=== PATIENT | male | born 1955 | race Caucasian/White ===

== ENCOUNTER → 2017-09-17 08:24 | Outpatient (CLI) | payer OTHER, SELFPAY ==
[2017-09-17 10:15] LABS: Hematocrit 44.5 % (40-54); Hemoglobin 15.3 g/dl (13.0-16.5); Mean Corp Hgb Conc 34.4 g/gl (32-36); Mean Corpuscular Hgb 31.2 pg (27.0-32.0); Mean Corpuscular Volume 90.8 fL (80-94); Mean Platelet Vol. 9.9 fl (6.2-12.0); Platelet Count 179 K/mm3 (150-450); RBC Distribution Width CV 13.1 % (11.6-14.6); RBC Distribution Width SD 43.5 fl (35.1-43.9); White Blood Count 6.1 K/mm3 (4.4-11.0)
[2017-09-17 10:21] LABS: Scan Indicated on CBC? Y/N NO
[2017-09-17 10:48] LABS: Anion Gap 6 (5-15); BUN 15 mg/dL (7-18); BUN/Creat Ratio 15.7 RATIO (10-20); Calcium,Total 8.6 mg/dL (8.5-10.1); Chloride 107 mmol/L (98-107); Cholesterol 130 mg/dL (200); Creatinine, Serum 0.96 mg/dL (0.70-1.30); EST Glomerular Filtration Rate 84 mL/min (>60); Est Glom Filt Rate - Afr Amer 102 mL/min (>60); Glucose 97 mg/dL (74-106); High Density Lipoprotein 44 mg/dL; Potassium 3.8 mmol/L (3.5-5.1); Sodium Level 140 mmol/L (136-145); Thyroid Stim Hormone (TSH) 2.32 uIU/mL (0.358-3.74); Triglycerides 95 mg/dL; Very Low Density Lipoprotein 19 mg/dL (5-40)
== END ==
PROVIDERS: Visit Provider Family Medicine
DX: I48.91 Unspecified atrial fibrillation (principal); N40.0 Benign prostatic hyperplasia without lower urinary tract symptoms
CPT/HCPCS: 36415; 80048; 80061; 84153; 84443; 85027; G0103

== ENCOUNTER → 2018-10-11 | Outpatient (CLI) | payer MEDICARE, OTHER, SELFPAY ==
[2018-10-11 10:42] LABS: Anion Gap 7 (5-15); BUN 17 mg/dL (7-18); BUN/Creat Ratio 18.3 RATIO (10-20); Calcium,Total 8.5 mg/dL (8.5-10.1); Chloride 108 mmol/L (98-107); Cholesterol 123 mg/dL (200); Creatinine, Serum 0.93 mg/dL (0.70-1.30); EST Glomerular Filtration Rate 87 mL/min (>60); Est Glom Filt Rate - Afr Amer 105 mL/min (>60); Glucose 106 mg/dL (74-106); High Density Lipoprotein 46 mg/dL; PSA,Total - Annual Screen 1.75 ng/mL (0.00-4.00); Potassium 4.1 mmol/L (3.5-5.1); Sodium Level 141 mmol/L (136-145); Thyroid Stim Hormone (TSH) 2.15 uIU/mL (0.358-3.74); Triglycerides 73 mg/dL; Very Low Density Lipoprotein 15 mg/dL (5-40)
== END | disposition home or self-care (01) ==
LOC: MFPLAB 08:11
PROVIDERS: Family Provider Family Medicine; PCP Family Medicine; Referring Provider Family Medicine; Visit Provider Family Medicine
DX: I48.91 Unspecified atrial fibrillation (principal); N40.0 Benign prostatic hyperplasia without lower urinary tract symptoms
CPT/HCPCS: 36415; 80048; 80061; 84153; 84443; G0103

== ENCOUNTER → 2018-10-17 | Outpatient (CLI) | payer MEDICARE, OTHER, SELFPAY ==
[2018-02-28 14:34] VITALS: BMI 26.9
--- NOTE | 2018-10-17 07:40 | US_ITS ---
PROCEDURES: ULTRASOUND AORTA REASON FOR EXAM: Male, 63 years old. Screening, family history TECHNIQUE: Ultrasound evaluation of the aorta was performed with real-time and static mora-scale imaging. COMPARISON: None. FINDINGS: There is no elongation or tortuosity of the abdominal aorta. Aorta measures: Proximal 2.6 cm. Middle 2.1 cm. Distal 1.9 cm. Aorta measure transversely: Proximal 2.3 cm. Middle 2.3 cm. Distal 2.2 cm. Right iliac artery measures: 1.5 cm. Right iliac artery measure transversely: 1.4 cm. Left iliac artery measures: 1.4 cm. Left iliac artery measure transversely: 1.4 cm. There is no demonstrated aneurysm.. US/Aorta IMPRESSION: Normal abdominal aorta. Electronically Signed: Nic Casillas MD at 10:20 EDT , Service support ,
== END | disposition home or self-care (01) ==
PROVIDERS: Family Provider Family Medicine; PCP Family Medicine; Referring Provider Family Medicine; Visit Provider Family Medicine
DX: Z00.00 Encounter for general adult medical examination without abnormal findings (principal); I10 Essential (primary) hypertension
CPT/HCPCS: 76775

== ENCOUNTER → 2019-05-27 12:53 | Outpatient (CLI) | payer MEDICARE, OTHER, SELFPAY ==
[2019-05-08 10:32] VITALS: BMI 27.9
--- NOTE | 2019-05-27 12:55 | ECHOD_ITS ---
Reason For Study: AFIB/FLUTTER Procedure This was a 2D Doppler, Color Flow transthoracic echocardiogram. Exam performed in department. Left Ventricle Mild concentric left ventricular hypertrophy. The estimated ejection fraction is 65 %. Normal diastology for age. No regional wall motion abnormalities noted. Right Ventricle Moderately dilated right ventricle. Normal systolic function. Atria The left atrium is mildly enlarged. Normal right atrium. Normal atrial septum. Mitral Valve The mitral valve is structurally normal. No prolapse or stenosis seen. Mild (1+) mitral valve insufficiency. Tricuspid Valve Normal tricuspid valve. Trivial tricuspid valve insufficiency. Right ventricular systolic pressure estimated to be 28 mmHg. Aortic Valve Trisinus/trileaflet aortic valve. Trivial aortic valve insufficiency. Pulmonic Valve Normal pulmonic valve. Trivial pulmonic valve insufficiency. Great Vessels Normal aortic root. Normal arch. Normal inferior vena cava. Inferior vena cava collapse with sniff. Pericardium/Pleural No pericardial effusion. MMode/2D Measurements & Calculations LVIDd: 5.4 cm IVSd: 1.4 cm Ao root diam: 3.5 cm LVIDs: 3.5 cm LVPWd: 0.90 cm RVDd: 4.2 cm FS: 34.7 % LAV(MOD-bp): 75.6 ml EDV(MOD-sp4): 132.9 ml SV(MOD-sp4): 74.6 ml LAV(MOD-bp) Indexed: 35.0 ml/m2 ESV(MOD-sp4): 58.2 ml LAV(MOD-sp2): 68.8 ml EF(MOD-sp4): 56.2 % LAV(MOD-sp4): 68.6 ml LA dimension(2D): 4.1 cm LA A4 area: 21.4 cm2 RA A4 area: 19.5 cm2 Time Measurements MV dec time: 0.21 sec Doppler Measurements & Calculations MV E max hermelindo: 74.0 cm/sec Lat Peak E' Hermelindo: 9.0 cm/sec Med Peak E' Hermelindo: 7.5 cm/sec MV A max hermelindo: 58.9 cm/sec E/E' lat: 8.2 E/E' med: 9.9 MV E/A: 1.3 Ao V2 max: 149.5 cm/sec LV V1 max: 118.8 cm/sec MR max hermelindo: 554.3 cm/sec Ao max P.9 mmHg LV V1 max P.6 mmHg MR max P.9 mmHg PA V2 max: 87.9 cm/sec TR max hermelindo: 227.3 cm/sec TR max P.7 mmHg Interpretation Summary Mild concentric left ventricular hypertrophy. The estimated ejection fraction is 65 %. Normal diastology for age. Moderately dilated right ventricle. The left atrium is mildly enlarged. Mild (1+) mitral valve insufficiency. Trivial tricuspid valve insufficiency. Right ventricular systolic pressure estimated to be 28 mmHg. Trivial aortic valve insufficiency. Compared to echo report dated 06/05/2016, LV function, RVSP and aortic insufficiency are about the same. RV is now moderately enlarged. Ordering Physician: Carlos Yao Referring Physician: Toni Kim Performed By: Kelsey Weathers RDCS, RVT
== END ==
PROVIDERS: Family Provider Family Medicine; PCP Family Medicine; Referring Provider Internal Medicine Cardiovascular Disease; Visit Provider Internal Medicine Cardiovascular Disease
DX: I48.0 Paroxysmal atrial fibrillation (principal)
CPT/HCPCS: 93306

== ENCOUNTER → 2019-06-05 09:37 | Outpatient (CLI) | payer MEDICARE, OTHER, SELFPAY ==
[2019-05-08 10:32] VITALS: BMI 27.9
--- NOTE | 2019-06-05 09:39 | STEWCON_ITS ---
Reason For Study: atrial fib/flutter Stress Results Protocol: Rocky Protocol WITH DEFINITY Maximum Predicted HR: 155 bpm Target HR: 132 bpm % Maximum Predicted HR: 91 % DurationHeart Rate Stage (mm:ss) (bpm) BP Comment baseline 50 122/784ml definity given total stage 1 3:00 75 130/70 stage 2 3:00 92 162/70 stage 3 3:00 108 180/72 stage 4 2:01 141 184/80 recovery 70 132/66 Stress Duration: 11:01 mm:ss Maximum Stress HR: 141 bpm Baseline Echocardiogram Findings The estimated ejection fraction is 65 %. Stress Echo Wall motion Data Resting WM Intermediate WM Stress WM Resting Wall Motion Wall Motion Stress No regional wall motion No regional wall motion abnormalities noted. abnormalities noted. EKG Data The baseline ECG displays normal sinus rhythm. The patient exercised according to the regular Rocky protocol for a total duration of 11:00. The maximum heart rate attained was 141 beats per minute. This was 90% of maximum predicted heart rate. The patient exercised into stage 4 of the Rocky protocol. During stress, there were no ST or T wave changes noted to suggest ischemia. No clinical angina was noted. Interpretation Summary The estimated ejection fraction is 65 %. Normal, adequate, treadmill echocardiogram. Negative for ischemia by EKG and echocardiographic criteria. No anginal symptoms noted. Rare PVC noted. Average exercise capacity for age. Appropriate blood pressure response to exercise. Test terminated due to the attainment target heart rate. Final LVEF is 75%. Decreased sensitivity due to poor echo windows requiring Definity agent. Patient tolerated procedure well. No complications. The study was technically difficult. Contrast injection was performed. Ordering Physician: Carlos Yao Referring Physician: Carlos Yao Performed By: Oralia Herr RDCS
== END ==
PROVIDERS: Family Provider Family Medicine; PCP Family Medicine; Referring Provider Internal Medicine Cardiovascular Disease; Visit Provider Internal Medicine Cardiovascular Disease
DX: I48.0 Paroxysmal atrial fibrillation (principal); R00.1 Bradycardia, unspecified; Z79.01 Long term (current) use of anticoagulants; I48.92 Unspecified atrial flutter; R94.31 Abnormal electrocardiogram [ECG] [EKG]
CPT/HCPCS: 93017; 93350; Q9957; A4216; C8928

== ENCOUNTER → 2020-02-12 08:15 | Outpatient (CLI) | payer MEDICARE, OTHER, SELFPAY ==
[2019-11-27 09:17] VITALS: BMI 27.9
[2020-02-12 10:06] LABS: BUN 12 mg/dL (7-18); Creatinine, Serum 0.88 mg/dL (0.70-1.30); EST Glomerular Filtration Rate 92 mL/min (>60); Glucose 103 mg/dL (74-106)
[2020-02-12 10:07] LABS: ALB/GLOB Ratio 1.1 RATIO (0.9-2.4); AST(SGOT) 18 U/L (15-37); Alanine Aminotransfer ALT/SGPT 20 U/L (16-61); Albumin, Serum 3.6 g/dL (3.2-5.0); Alkaline Phosphatase 44 U/L (45-117); Anion Gap 3 (5-15); BUN/Creat Ratio 13.6 RATIO (10-20); Calcium,Total 8.4 mg/dL (8.5-10.1); Chloride 108 mmol/L (98-107); Cholesterol 130 mg/dL (200); Est Glom Filt Rate - Afr Amer 111 mL/min (>60); Globulin 3.4 g/dL (2.2-4.2); High Density Lipoprotein 49 mg/dL; PSA,Total - Annual Screen 1.38 ng/mL (0.00-4.00); Potassium 4.2 mmol/L (3.5-5.1); Sodium Level 140 mmol/L (136-145); Triglycerides 76 mg/dL; Very Low Density Lipoprotein 15 mg/dL (5-40)
[2020-02-12 10:08] LABS: Vitamin D,25 Hydroxy 70.1 ng/mL
== END ==
PROVIDERS: PCP Family Medicine; Referring Provider Family Medicine; Visit Provider Family Medicine
DX: I10 Essential (primary) hypertension (principal); E55.9 Vitamin D deficiency, unspecified; N40.0 Benign prostatic hyperplasia without lower urinary tract symptoms; Z12.5 Encounter for screening for malignant neoplasm of prostate
CPT/HCPCS: 36415; 80053; 80061; 82306; 84153; G0103

== ENCOUNTER 2020-08-23 16:58 | Outpatient (RCR) | payer MEDICARE, OTHER, SELFPAY ==
[2020-07-29 13:32] VITALS: BMI 27.5
== END 2020-08-23 23:59 ==
LOC: IMMUN 16:58
PROVIDERS: PCP Family Medicine; Visit Provider Family Medicine
DX: Z23 Encounter for immunization (principal)
CPT/HCPCS: 0011A; 0012A

== ENCOUNTER → 2020-12-30 09:18 | Outpatient (CLI) | payer MEDICARE, OTHER, SELFPAY ==
[2020-07-29 13:32] VITALS: BMI 27.5
== END ==
PROVIDERS: PCP Family Medicine; Referring Provider Physician Assistant Medical; Visit Provider Physician Assistant Medical
DX: I48.0 Paroxysmal atrial fibrillation (principal); R00.1 Bradycardia, unspecified; R00.2 Palpitations; R94.31 Abnormal electrocardiogram [ECG] [EKG]
CPT/HCPCS: 93225; 93226

== ENCOUNTER → 2021-02-17 08:23 | Outpatient (CLI) | payer MEDICARE, OTHER, SELFPAY ==
[2021-02-17 10:22] LABS: Cholesterol 128 mg/dL (200); High Density Lipoprotein 51 mg/dL; Triglycerides 74 mg/dL; Very Low Density Lipoprotein 15 mg/dL (5-40)
[2021-02-18 14:56] LABS: Hematocrit 45.6 % (40-54); Hemoglobin 15.2 g/dL (13.0-16.5); Mean Corp Hgb Conc 33.3 g/dL (32-36); Mean Corpuscular Hgb 31.6 pg (27.0-32.0); Mean Corpuscular Volume 94.8 fL (80-94); Mean Platelet Vol. 10.6 fl (6.2-12.0); Platelet Count 185 K/mm3 (150-450); RBC Distribution Width CV 12.8 % (11.6-14.6); RBC Distribution Width SD 44.6 fl (35.1-43.9); Red Blood Count 4.81 M/mm3 (4.6-6.2); White Blood Count 5.3 K/mm3 (4.4-11.0)
[2021-02-18 15:09] LABS: Anion Gap 5 (5-15); BUN 16 mg/dL (7-18); BUN/Creat Ratio 17.8 RATIO (10-20); Calcium,Total 8.9 mg/dL (8.5-10.1); Chloride 107 mmol/L (98-107); EST Glomerular Filtration Rate 90 mL/min (>60); Est Glom Filt Rate - Afr Amer 109 mL/min (>60); Glucose 101 mg/dL (74-106); PSA,Total - Annual Screen 1.76 ng/mL (0.00-4.00); Potassium 4.6 mmol/L (3.5-5.1); Sodium Level 140 mmol/L (136-145)
== END ==
PROVIDERS: PCP Family Medicine; Visit Provider Family Medicine
DX: N40.0 Benign prostatic hyperplasia without lower urinary tract symptoms (principal); I48.91 Unspecified atrial fibrillation; I10 Essential (primary) hypertension
CPT/HCPCS: 36415; 80048; 80061; 84153; 85027; G0103

== ENCOUNTER → 2021-10-27 | Outpatient (CLI) | payer MEDICARE, OTHER, SELFPAY ==
--- NOTE | 2021-10-27 10:57 | ECHOD_ITS ---
Version 2 Reason For Study: ARRYTHMIA Procedure This was a 2D Doppler, Color Flow transthoracic echocardiogram. Exam performed in department. Left Ventricle Normal LV size. Moderate concentric left ventricular hypertrophy. Sigmoid septum. Left ventricular systolic function is normal. No regional wall motion abnormalities noted. Right Ventricle Normal right ventricle. Normal systolic function. Atria Normal left atrium. Normal right atrium. Mitral Valve Bileaflet diffuse mitral valve thickening. Mild (1+) eccentric mitral valve insufficiency. Tricuspid Valve Normal tricuspid valve. Mild tricuspid valve insufficiency. Aortic Valve Trisinus/trileaflet aortic valve. Mild (1+) eccentric aortic valve insufficiency. Pulmonic Valve Normal pulmonic valve. Great Vessels Normal aortic root. The pulmonary artery is normal size. Normal inferior vena cava. Pericardium/Pleural No pericardial effusion. MMode/2D Measurements & Calculations LVIDd: 6.0 cm IVSd: 1.3 cm Ao root diam: 3.3 cm LVIDs: 3.0 cm LVPWd: 1.7 cm RVDd: 3.5 cm FS: 49.8 % LAV(MOD-sp4): 73.1 ml LVAd ap4: 44.3 cm2 LVAd ap2: 29.1 cm2 LVLd ap4: 9.2 cm LVLd ap2: 6.9 cm EDV(MOD-sp4): 166.2 ml EDV(MOD-sp2): 96.1 ml EDV(sp4-el): 179.7 ml EDV(sp2-el): 104.0 ml LVAs ap4: 23.9 cm2 LVAs ap2: 18.1 cm2 LVLs ap4: 8.3 cm LVLs ap2: 6.8 cm ESV(MOD-sp4): 62.2 ml ESV(MOD-sp2): 42.2 ml ESV(sp4-el): 58.1 ml ESV(sp2-el): 40.9 ml EF(MOD-sp4): 62.6 % EF(MOD-sp2): 56.1 % EF(sp4-el): 67.7 % SV(MOD-sp4): 103.9 ml SV(MOD-sp2): 53.9 ml SV(sp4-el): 121.7 ml LA dimension(2D): 4.2 cm Doppler Measurements & Calculations MV E max hermelindo: 63.7 cm/sec Lat Peak E' Hermelindo: 9.2 cm/sec Med Peak E' Hermelindo: 6.1 cm/sec MV A max hermelindo: 56.2 cm/sec E/E' lat: 7.0 E/E' med: 10.4 MV E/A: 1.1 Ao V2 max: 170.4 cm/sec AI max hermelindo: 496.8 cm/sec LV V1 max: 140.9 cm/sec Ao max P.6 mmHg AI max P.9 mmHg LV V1 max P.9 mmHg AI dec slope: 217.6 cm/sec2 AI P1/2t: 668.9 msec MR max hermelindo: 648.9 cm/sec PA V2 max: 88.4 cm/sec TR max hermelindo: 193.8 cm/sec MR max P.4 mmHg TR max P.0 mmHg MR mean hermelindo: 471.4 cm/sec MR mean P.5 mmHg MR VTI: 222.7 cm ECHO/Echo Complete Interpretation Summary Normal LV size. Left ventricular systolic function is normal. Moderate concentric left ventricular hypertrophy. Sigmoid septum. Mild (1+) eccentric aortic valve insufficiency. Ordering Physician: Dani Rouse Referring Physician: Dani Rouse Performed By: Juani Brower RCS
== END | disposition home or self-care (01) ==
LOC: CVS 10:57
PROVIDERS: PCP Family Medicine; Referring Provider Internal Medicine Cardiovascular Disease; Visit Provider Internal Medicine Cardiovascular Disease
DX: I48.0 Paroxysmal atrial fibrillation (principal); R00.1 Bradycardia, unspecified; Z79.01 Long term (current) use of anticoagulants
CPT/HCPCS: 93306

== ENCOUNTER → 2022-02-02 | Outpatient (CLI) | payer MEDICARE, OTHER, SELFPAY ==
[2022-02-02 10:13] LABS: Hematocrit 45.4 % (40-54); Hemoglobin 14.9 g/dL (13.0-16.5); Mean Corp Hgb Conc 32.8 g/dL (32-36); Mean Corpuscular Volume 94.4 fL (80-94); Mean Platelet Vol. 9.9 fl (6.2-12.0); Platelet Count 186 K/mm3 (150-450); RBC Distribution Width CV 12.7 % (11.6-14.6); RBC Distribution Width SD 43.8 fl (35.1-43.9); Red Blood Count 4.81 M/mm3 (4.6-6.2); White Blood Count 5.9 K/mm3 (4.4-11.0)
[2022-02-02 10:35] LABS: Anion Gap 5 (5-15); BUN 20 mg/dL (7-18); BUN/Creat Ratio 22.1 RATIO (10-20); Chloride 108 mmol/L (98-107); Cholesterol 128 mg/dL (200); EST Glomerular Filtration Rate 89 mL/min (>60); Est Glom Filt Rate - Afr Amer 107 mL/min (>60); Glucose 116 mg/dL (74-106); High Density Lipoprotein 48 mg/dL; Sodium Level 141 mmol/L (136-145); Thyroid Stim Hormone (TSH) 2.33 uIU/mL (0.358-3.74); Triglycerides 72 mg/dL; Very Low Density Lipoprotein 14 mg/dL (5-40)
== END | disposition home or self-care (01) ==
LOC: MTLAB 07:46
PROVIDERS: PCP Family Medicine; Referring Provider Family Medicine; Visit Provider Family Medicine
DX: I10 Essential (primary) hypertension (principal); I48.91 Unspecified atrial fibrillation; N40.0 Benign prostatic hyperplasia without lower urinary tract symptoms
CPT/HCPCS: 36415; 80048; 80061; 84443; 85027

== ENCOUNTER → 2023-02-23 | Outpatient (CLI) | payer MEDICARE, OTHER, SELFPAY ==
[2023-02-23 10:08] LABS: Absolute Neutrophil Count 3.3 X10^3/uL (2.0-7.7); Basophil# 0.02 X10^3/uL; Basophil% 0.4 % (0-1); Eosinophil# 0.15 X10^3/uL; Eosinophils% 2.7 % (0-5); Hematocrit 44.5 % (40-54); Hemoglobin 14.6 g/dL (13.0-16.5); Lymphocyte % 26.8 % (19-41); Mean Corp Hgb Conc 32.8 g/dL (32-36); Mean Corpuscular Hgb 31.1 pg (27.0-32.0); Mean Corpuscular Volume 94.7 fL (80-94); Mean Platelet Vol. 9.6 fl (6.2-12.0); Monocyte# 0.65 X10^3/uL; Monocyte% 11.6 % (0-10); NRBC Flagged by Analyzer 0 % (0-5); Neutrophil # 3.27 X10^3/uL (2.7-7.7); Neutrophil % 58.3 % (47-70); Platelet Count 180 K/mm3 (150-450); RBC Distribution Width CV 12.7 % (11.6-14.6); RBC Distribution Width SD 44.5 fl (35.1-43.9); White Blood Count 5.6 K/mm3 (4.4-11.0)
[2023-02-23 10:43] LABS: Microalbumin,Random Urine 7.5 mg/L (NO RANGE EST.)
[2023-02-23 10:59] LABS: Vitamin B12 510 pg/mL (211-911)
[2023-02-23 11:14] LABS: Anion Gap 4 (5-15); BUN 15 mg/dL (7-18); BUN/Creat Ratio 17.5 RATIO (10-20); Calcium,Total 8.8 mg/dL (8.5-10.1); Chloride 107 mmol/L (98-107); Cholesterol 116 mg/dL (200); Creatinine, Serum 0.86 mg/dL (0.70-1.30); EST Glomerular Filtration Rate 94 mL/min (>60); Est Glom Filt Rate - Afr Amer 114 mL/min (>60); Glucose 102 mg/dL (74-106); High Density Lipoprotein 49 mg/dL; PSA,Total - Annual Screen 2.08 ng/mL (0.00-4.00); Potassium 4.2 mmol/L (3.5-5.1); Sodium Level 141 mmol/L (136-145); Thyroid Stim Hormone (TSH) 2.12 uIU/mL (0.358-3.74); Triglycerides 55 mg/dL; Very Low Density Lipoprotein 11 mg/dL (5-40)
== END | disposition home or self-care (01) ==
LOC: MTLAB 07:19
PROVIDERS: PCP Family Medicine; Referring Provider Family Medicine; Visit Provider Family Medicine
DX: Z00.00 Encounter for general adult medical examination without abnormal findings (principal); G20 Parkinson's disease; I10 Essential (primary) hypertension; N40.0 Benign prostatic hyperplasia without lower urinary tract symptoms; Z12.5 Encounter for screening for malignant neoplasm of prostate
CPT/HCPCS: 36415; 80048; 80061; 82043; 82607; 84153; 84443; 85025; G0103

== ENCOUNTER → 2023-03-15 | Outpatient (CLI) | payer MEDICARE, OTHER, SELFPAY ==
--- NOTE | 2023-03-15 11:07 | MRI_ITS ---
EXAM: MR HEAD WITHOUT INTRAVENOUS CONTRAST CLINICAL INDICATION: PARKINSON DISEASE, SHUFFLING FEET TECHNIQUE: Multiplanar and multisequence MR images of the brain were obtained without intravenous contrast. COMPARISON: No relevant prior studies available. FINDINGS: BRAIN AND EXTRA-AXIAL SPACES: Unremarkable. No intra- or extra-axial hemorrhage. No evidence of acute infarct. No intracranial mass or mass effect. There is preservation of the mora/white matter interface. Posterior fossa structures are unremarkable. Ventricles are appropriate for age. No hydrocephalus. Basal cisterns are patent. SELLA: Unremarkable. Normal sella turcica, pituitary gland, infundibular stalk, optic chiasm and hypothalamus. AUDITORY SYSTEM: Unremarkable. The internal auditory canals are patent. BONES/JOINTS: Unremarkable. No discrete lytic or blastic abnormalities. SINUSES: Unremarkable as visualized. Clear. MASTOID AIR CELLS: Unremarkable as visualized. Clear. ORBITS: Unremarkable as visualized. Both globes, extraocular muscles, optic nerves and retrobulbar fat appear unremarkable. VASCULATURE: Unremarkable as visualized. Normal flow voids in the major intracranial circulation. MRI/Brain without Contrast IMPRESSION: Negative MRI brain without intravenous contrast. Electronically Signed: Vikas Ozuna MD at 8:07 EDT ,
== END | disposition home or self-care (01) ==
LOC: MRI 03-22 15:12
PROVIDERS: PCP Family Medicine; Referring Provider Family Medicine; Visit Provider Family Medicine
DX: G20 Parkinson's disease (principal)
CPT/HCPCS: 70551

== ENCOUNTER → 2023-07-06 | Outpatient (CLI) | payer MEDICARE, OTHER, SELFPAY ==
--- OUTSIDE RECORDS SUMMARY | 2023-07-06 13:05 | XMS RPT_ITS | CCD ---
Author Name Unknown Address [address] [place] [address] Organization [facility] Care Team Providers Care Healthcare Insurance Sales Agent Name Role Phone Jody Abbasi Unavailable Unavailable Jody Abbasi Unavailable Unavailable Toni Kim Primary Care Provider Medications Current Medications Medication Drug Class(es) Dates Sig (Normalized) Sig (Original) carbidopa 25 mg / levodopa 100 mg extended release oral tablet (1 source) Aromatic Amino Acid Decarboxylation Inhibitor, Aromatic Amino Acid Start: 05-24-2023 carbidopa-levodo pa CR (Sinemet CR) 25-100 MG ER tablet 24 hr dilTIAZem hydrochloride 240 mg extended release oral capsule (5 sources) Calcium Channel Geena Start: 05-31-2023 dilTIAZem CD (Cardizem CD) 240 MG 24 hr capsule Completed/Discontinued Medications Medication Drug Class(es) Dates Sig (Normalized) Sig (Original) apixaban 5 mg oral tablet (2 sources) Factor Xa Inhibitor Start: 07-04-2016 take 1 tablet by mouth twice daily ELIQUIS 5 MG TABS One tablet by mouth twice daily APIXABAN [id number] Carlos Yao MD aspirin 81 mg delayed release oral tablet (2 sources) Nonsteroidal Anti-inflammatory Drug Start: 06-15-2016 take 1 tablet by mouth once daily ASPIRIN EC 81 MG TBEC One tablet by mouth daily ASPIRIN [id number] Sherie Garcia RN calcium (4 sources) Phosphate Binder, Calcium Start: 08-01-2016 take 1 tablet by mouth once daily CALCIUM 500 MG TABS One tablet by mouth daily CALCIUM [id number] Carlos Yao MD Problems Problem Classification Problem Date Documented Da te Episodic/Chronic Cardiac dysrhythmias (6 sources) Sinus bradycardia; Translations: [Paroxysmal atrial fibrillation] Onset: 06-15-2016 08-01-2016 Chronic Unclassified (1 source) Parkinson's disease; Translations: [Parkinson's disease without dyskinesia or fluctuating manifestations] 07-04-2023 Chronic Unclassified (2 sources) Drug therapy finding; Translations: [penitentiary (current) use of anticoagulants] Onset: 07-04-2016 07-04-2016 Results Test Name Value Interpretation Reference Range Facil ity Vital Signs Date Time Vital Sign Value Performing Clinician Faci lity 07-04-2023 11:24-0500 Body weight 85.28 kg Marco A Restrepo MD Work Phone: [employer] 07-04-2023 11:24-0500 Diastolic blood pressure 74 mm[Hg] Marco A Restrepo MD Work Phone: [employer] 07-04-2023 11:24-0500 Heart rate 51 /min Marco A Restrepo MD Work Phone: [employer] 07-04-2023 11:24-0500 Systolic blood pressure 130 mm[Hg] Marco A Restrepo MD Work Phone: [employer] 02-05-2017 13:53-0400 BMI (Body Mass Index) 25.77 kg/m2 [facility] Work Phone: 02-05-2017 13:53-0400 BP Diastolic 60 mm[Hg] [facility] Work Phone: 02-05-2017 13:53-0400 BP Systolic 108 mm[Hg] [facility] Work Phone: 02-05-2017 13:53-0400 Height 182.88 cm [facility] Work Phone: 02-05-2017 13:53-0400 Pulse (Heart Rate) 58 /min [facility] Work Phone: 02-05-2017 13:53-0400 Respiratory Rate 18 /min [facility] Work Phone: 02-05-2017 13:53-0400 Weight 86.18 kg Jody Dhillonoster [employer] [facility] Work Phone: 08-01-2016 09:52-0500 BSA (Body Surface Area) 2.12 m2 Jody Dhillonoster [employer] [facility] Work Phone: Encounters Encounter Date Encounter Type Care Provider Facility Start: 07-04-2023 End: 07-04-2023 Office outpatient new 45 minutes Marco A Restrepo MD Work Phone: [facility] Procedures Date Procedure Procedure Detail Performing Clinician Start: 02-05-2017 End: 02-05-2017 GHULAM Yao MD Work Phone: Start: 02-05-2017 End: 02-05-2017 Follow Up Appt 6 months Carlos Yao MD Work Phone: Start: 08-01-2016 End: 08-01-2016 GHULAM Yao MD Work Phone: Start: 08-01-2016 End: 08-01-2016 Follow Up Appt 6 months Carlos Yao MD Work Phone: Start: 07-04-2016 End: 07-04-2016 GHULAM Yao MD Work Phone: Start: 07-04-2016 End: 07-04-2016 Electrocardiogram, complete Carlos Yao MD Work Phone: Start: 07-04-2016 End: 07-04-2016 Follow Up Appt 1 month Carlos Yao MD Work Phone: Start: 06-15-2016 End: 07-21-2016 Follow Up BP Check Carlos Yao MD Work Phone: Plan of Treatment Date Care Activity Detail Author Start: 02-22-2033 DTaP/Tdap/Td Vaccines (3 - Td or Tdap) DTaP/Tdap/Td Vaccines (3 - Td or Tdap) [facility] Start: 10-03-2023 End: 10-03-2023 Patient encounter procedure 10/03/2023 11:00 AM EDT Office Visit [facility] [address] [place] [address] Marco A Restrepo MD [address] [place] [address] [facility] Start: 08-13-2017 End: 08-13-2017 Appointment Appointment [facility] Work Phone: Start: 02-05-2017 End: 02-05-2017 Appointment Appointment [facility] Work Phone: Start: 02-05-2017 End: 02-05-2017 [facility] Work Phone: Start: 02-05-2017 End: 02-05-2017 Follow Up Appt 6 months Follow Up Appt 6 months [facility] Work Phone: Start: 08-01-2016 End: 08-01-2016 [facility] Work Phone: Start: 08-01-2016 End: 08-01-2016 Follow Up Appt 6 months Follow Up Appt 6 months [facility] Work Phone: Start: 07-04-2016 End: 07-04-2016 DJRajani GHULAM [facility] Work Phone: Start: 07-04-2016 End: 07-04-2016 Electrocardiogram, complete EKG (In office) [facility] Work Phone: Start: 07-04-2016 End: 07-04-2016 Follow Up Appt 1 month Follow Up Appt 1 month [facility] Work Phone: Start: 06-15-2016 End: 07-21-2016 Follow Up BP Check Follow Up BP Check [facility] Work Phone: Start: 2013 RSV Immunization aged 60 or older (1 - 1-dose 60+ series) RSV Immunization aged 60 or older (1 - 1-dose 60+ series) [facility] Start: 08-31-1971 Hepatitis C screening Hepatitis C Screening [facility] Start: 1965 Depression Screening Depression Screening [facility] Start: 1953 Lipid panel Lipid Panel [facility] Start: 1955 Medicare Annual Wellness (AWV) Medicare Annual Wellness (AWV) [facility] Start: 1955 Screening for malignant neoplasm of colon [facility] Payers Date Payer Category Payer Private Health Insurance [facility] [id number] 2022-Present [address] [place] [address] Commercial [id number] 2018 Medicare MEDICARE MEDICAR E PART A AND B [id number] 2018-Present [address] [place] [address] Medicare [id number] Social History Date Type Detail Facility Start: 07-04-2023 Tobacco smoking status NHIS Ex-smoke r [facility] End: 06-25-1984 History of tobacco use Current smoker [facility] End: 06-25-1984 History of tobacco use Cigarette Smoker [facility] Start: 07-04-2023 Tobacco use and exposure Smokeless t obacco non-user [facility] Start: 1955 Sex Assigned At Not on file [facility] Gender identity Not on file [facility] History of Present illness Narrative 07-04-2023 Marco A Restrepo MD - 07/04/2023 11:30 AM EST Note Date & Type Note Facility 07-04-2023 History of Presen t illness Narrative Images from the original note were not included. [facility] [address] [place] [address] [facility] [address] Dept: [phone] Dept Loc: [phone] Marco A Restrepo MD Thank you for your kind request for a neurological consultation on this patient. CHIEF COMPLAINT: Chief Complaint Patient presents with New Patient Tremors HISTORY OF PRESENT ILLNESS: The patient is a 67 y.o. person who presents with walking changes, quieting of his voice, smaller handwriting, and tremor. He reports that he talked with Dr. Kim about this. He reports that he had an MRI brain which we do not have that report to review today nor access to the record. He reports that he reports that Dr. Kim started him on carbidopa-levodopa which initially did not change things but after he increased it to TID it is helping him walk better. He reports shuffling. He has trouble with getting up from soft couches. No falls. He reports that he is having dysphagia with liquids. He reports that he is going to have a swallow eval soon. His reports that he has tremor in the left hand. No constipation. No episodes of acting out his dreams. He has not noticed loss of smell. Past Medical History: has a past medical history of A-fib (CMS/[facility]) ([facility]), Anxiety, and Parkinson disease. Past Surgical History: has no past surgical history on file. Medications: Current Outpatient Medications: carbidopa-levodopa CR (Sinemet CR) 25-100 MG ER tablet, , Disp: , Rfl: dilTIAZem CD (Cardizem CD) 240 MG 24 hr capsule, , Disp: , Rfl: Xarelto 20 MG tablet, , Disp: , Rfl: rOPINIRole (Requip) 3 MG tablet, Take 1 tablet (3 mg) by mouth 3 times daily., Disp: 90 tablet, Rfl: 2 Allergies: Patient has no known allergies. Social History: Social History Socioeconomic History Marital status: Spouse name: Not on file Number of children: Not on file Years of education: Not on file Highest education level: Not on file Occupational History Not on file Tobacco Use Smoking status: Former Types: Cigarettes Quit date: 1984 Years since quittin.0 Smokeless tobacco: Never Substance and Sexual Activity Alcohol use: Not on file Drug use: Not on file Sexual activity: Not on file Other Topics Concern Not on file Social History Narrative Not on file Social Determinants of Health Financial Resource Strain: Not on file Food Insecurity: Not on file Transportation Needs: Not on file Physical Activity: Not on file Stress: Not on file Social Connections: Not on file Intimate Partner Violence: Not on file Housing Stability: Not on file Family History: Family History Problem Relation Name Age of Onset Dementia Mother REVIEW OF SYSTEMS: Review of Systems Constitutional: Negative for appetite change, chills, diaphoresis, fever and unexpected weight change. HENT: Positive for trouble swallowing. Negative for dental problem and mouth sores. Eyes: Negative for discharge and itching. Respiratory: Negative for chest tightness. Cardiovascular: Negative for chest pain and leg swelling. Gastrointestinal: Negative for rectal pain and vomiting. Endocrine: Negative for polydipsia, polyphagia and polyuria. Genitourinary: Negative for decreased urine volume, flank pain and genital sores. Musculoskeletal: Positive for gait problem. Negative for arthralgias. Skin: Negative for color change. Allergic/Immunologic: Negative for food allergies and immunocompromised state. Neurological: Positive for tremors. Gait disturbance Hematological: Negative for adenopathy. Does not bruise/bleed easily. Psychiatric/Behavioral: Negative for agitation, behavioral problems, decreased concentration, sleep disturbance and suicidal ideas. PHYSICAL EXAM: Vitals: BP 130/74 (BP Location: Left arm) Pulse 51 Wt 188 lb (85.3 kg) General Appearance: Patient is in no apparent distress. Head is normocephalic, atraumatic Cardiovascular: Regular rate and rhythm. No heart murmurs. No carotid bruit Neurologic: Mentation: Alert and oriented x 3 [address], place and time. Speech and Language: Speech and language normal Concentration and Attention: Concentration normal Memory: Memory grossly normal Fund of Knowledge: Fund of knowledge normal Cranial Nerves: II, III, IV, V, , VII, VIII, IX, X, XI, XII tested and were intact including fundoscopic exam (optic discs) and visual field to confrontation. Masked facies. Motor: Strength:Strength 5 out of 5 with normal tone Alternating Movements: Normal Cogwheel Rigidity: Left>right and prominent Tone: Tone is normal Tremor / Involuntary Movements: Very mild bilaterally Deep Tendon Reflexes: 1 out of 4 symmetrical in all four limbs. Sensory: Normal sensation upper and lower extremities Coordination: Normal coordination upper and lower extremities Gait and Station: Station is abnormal. Gait is abnormal. He has decreased left arm swing and unsteadiness on turns. DATA CBC: No results found for: WBC , RBC , HGB , HCT , MCV , MCH , MCHC , RDW , PLT , MPV CMP: No results found for: NA , K , CL , CO2 , BUN , CREATININE , AGRATIO , LABGLOM , GLUCOSE , GLU , PROT , CALCIUM , BILITOT , ALKPHOS , AST , ALT BMP: No results found for: NA , K , CL , CO2 , BUN , CREATININE , CALCIUM , LABGLOM , GLUCOSE , GLU PT/INR: No results found for: PROTIME , INR PTT: No results found for: APTT , PTT [APTT} FLP: No results found for: CHLPL , TRIG , HDL , LDLCALC , LDLDIRECT TSH: No results found for: TSH VITAMIN B12: No results found for: [id number] FERRITIN: No results found for: FERRITIN ---- No results found for: PHENYTOIN , PHENOBARB , VALPROATE , CBMZ No components found for: TOPIRA No results found for: OXCARBAZE , OXCARB @LASTAPPOINTMENTTHISPROV@ No image results found. @RESULTINGLABINFO@ No results found for: LEVETIRACETA , FERRITIN , CRP , SHABBIR , ANCA No results found for: KENYA , IMMUNOGLOBUL , OLIGOBANDS No results found for: [id number] , HEPCAB No results found for: CRP , ANATITER , ANCA ASSESSMENT AND PLAN: Diagnosis Plan 1. Parkinson's disease without dyskinesia or fluctuating manifestations External referral to Physical Therapy rOPINIRole (Requip) 3 MG tablet Ropinirole to replace the carb-levo as he is only 67 years old and we want to stave off on and off phenomenon from chronic carb-levo use until years from now. I spent 45 minutes caring for this patient today, reviewing labs and records, seeing the patient, documenting in the record and arranging for studies. documented in this encounter [facility] Instructions 07-04-2023 Patient Instructions Note Date & Type Note Facility 07-04-2023 Instructions Marco A Restrepo MD - 07/04/2023 11:30 AM EST The patient was encouraged to follow the [facility] [employer] channel on YouTube: Multi-Tasking:[email or web address] Speed / Reaction Time Time:[email or web address] Freezing of Gait:[email or web address]://[email or web address] Getting to the floor and back up:[email or web address]://[email or web address] Seated MultiTasking:[email or web address]://[email or web address] Fine Motor: [email or web address]://[email or web address] Posture: [email or web address] documented in this encounter [facility] Evaluation note Note Date & Type Note Facility documented in this encounter [facility] Reason for Referral Specialty Diagnoses / Procedures Referred By Von t Referred To Contact Physical Therapy Diagnoses Parkinson's disease without dyskinesia or fluctuating manifestations Procedures DC OFFICE/OUTPATIENT NEW HIGH MDM 60 MINUTES Marco A Restrepo MD [address] [place] [address] Referral ID Status Reason Start Date Expiration Date Visits Requested Visits Authorized [id number] Pending Review Eval and Treat 07/04/2023 12/31/2023 99 99 Additional Source Comments Reason for Visit (unrecogniz ed section and content) Specialty Diagnoses / Procedures Referred By Perryac t Referred To Contact Neurology Diagnoses Parkinsonism, unspecified Procedures DC OFFICE/OUTPATIENT NEW MODERATE MDM 45-59 MINUTES Toni Kim [address] [place] [address] [facility] [address] [place] [address] Referral ID Status Reason Start Date Expiration Date Visits Re quested Visits Authorized [id number] Closed 03/26/2023 03/26/2024 1 1 Care Teams (unrecognized sec tion and content) FOR RECORDS PERTAINING TO PATIENTS WHO ARE OR HAVE BEEN ENROLLED IN A CHEMICAL DEPENDENCY/SUBSTANCEABUSE PROGRAM, SOME INFORMATION MAY BE OMITTED. This clinical summary was aggregated from multiple sources. Caution should be exercised in using it in the provision of clinical care. This summary normalizes information from multiple sources, and as a consequence, information in this document may materially change the coding, format and clinical context of patient data. In addition, data may be omitted in some cases. CLINICAL DECISIONS SHOULD BE BASED ON THE PRIMARY CLINICAL RECORDS. [facility] [employer] [facility]. provides no warranty or guarantee of the accuracy or completeness of information in this document.
--- NOTE | 2023-07-06 15:50 | ST.MBS ---
Modified Barium Swallow Patient Information Study Date: 07/06/23 Study Time: 13:00 Direct Billable Minutes: 79 Total Minutes procedure & reportin Diagnosis: Dysphagia R13.10 Referring Physician: Tyler Kim Reason for Referral: Objectively assess swallow function, assess risk for aspiration, and determine recommendations for least restrictive diet textures and compensatory strategies to improve safety of swallow. Medical History: PMH: Parkinson's disease (diagnosed ~1 week ago, symptoms onset ~1.5 years ago), Bradycardia, Afib. Patient reports sensation of foods catching in his throat daily, which require another bite or liquid wash to clear. Additionally, at times his own saliva feels like it goes down the wrong way. Given his recent diagnosis of Parkinson's and sensation of pharyngeal retention, his PCP referred him for MBSS. His neurologist is Dr. Restrepo in [place]. He would like the MBSS faxed to Dr. Restrepo. Current Diet Ordered: Regular textures / Thin liquids Dentition: WNL and Natural Teeth Mental Status: WNL Respiratory Status: Oxygenating on Room Air Penetration-Aspiration Scale Penetration-Aspiration Scale: OBJECTIVE ASSESSMENT OF SWALLOW FUNCTION (QUANTITATIVE ? PER TRIAL): PENETRATION / ASPIRATION SCALE ([place]): 1 = does not enter airway 2 = enters airway/above vocal folds/ejected 3 = enters airway/above vocal folds/not ejected 4 = enters airway/contacts vocal folds/ejected 5 = enters airway/contacts vocal folds/not ejected 6 = enters airway/below vocal folds/ejected 7 = enters airway/below vocal folds/not ejected despite effort 8 = enters airway/below vocal folds/no effort VIDEOFLOROSCOPIC SCALE SCORE ([place]): Grade I = aspiration of material that has penetrated into the laryngeal vestibule, intact cough reflex Grade II = aspiration < 10 % of the bolus, intact cough reflex Grade III = aspiration of < 10 % of the bolus, reduced cough reflex or aspiration of > 10 % of the bolus, intact cough reflex Grade IV = aspiration of > 10 % of the bolus, reduced cough reflex Penetration-Aspiration Scale Score Thin Liquid via teaspoon: Result: 1= does not enter airway Thin Liquid via teaspoon Trial 2: Result: 1= does not enter airway Thin Liquid via large single sip: cup: Result: 1= does not enter airway [place] Thick Liquid via large single sip: cup: Result: 1= does not enter airway Pudding via teaspoon: Result: 1= does not enter airway Comment: Esophageal screen - Complete clearance. 06/26 Cookie: Result: 1= does not enter airway Thin Liquid via sequential sips:straw: Result: 2= enter airway/above vocal folds/ejected Oral Phase Labial Seal: No Labial Escape Tongue Control During Bolus Hold: Cohesive bolus between tongue to palatal seal Bolus Preparation/Mastication: Timely and efficient chewing and mashing Bolus Transport/Lingual Motion: Brisk tongue motion Oral Residue: Trace residue lining oral structures Pharyngeal Phase Initiation of Pharyngeal Swallow: Bolus head at posterior laryngeal surgace of epiglottis Soft Palate Elevation: No bolus between soft palate and pharyngeal wall Laryngeal Elevation: Comp. Superior move thyroid cart w/comp. apprx arytenoid cart-epig pet (laryngeal penetration fully ejects after completion of sequential thin) Anterior Hyoid Excursion: Partial anterior movement Epiglottic Movement: Partial inversion Laryngeal Vestibule Closure at Height of Swallow: Incomplete; narrow column of air/contrast in laryngeal vestibule Pharyngeal Stripping Wave: Present - diminished Pharyngoesophageal Segment Opening: Parital distension and partial duration; parital obstruction of flow Tongue Base Retraction: Wide column of contrast between tongue base & post. pharyngeal wall (sequential thin) Pharyngeal Residue: Collection of residue within or on pharyngeal structures Esophageal Phase Esophageal Clearance: Complete clearance Diagnosis/Impression Diagnosis: Mild pharyngeal dysphagia R13.13 Impression: The oral phase is grossly WNL. The pharyngeal phase is primarily marked by... -Mildly decreased airway closure during the swallow due to decreased anterior hyoid excursion, inconsistent epiglottic inversion, and mildly decreased laryngeal elevation. -Mildly-moderately decreased tongue base retraction, mildly decreased UES opening/duration, and mildly decreased pharyngeal stripping wave with resulting mild-moderate pharyngeal residues after the swallow. Pharyngeal residue greatly increased with sequential sips of thin liquids. Multiple swallows, which he completed independently as needed, cleared a majority of pharyngeal residues. -Trace laryngeal penetration of sequential sips of thin liquids that fully ejected during the swallow. Recommendations Diet: Regular Textures and Thin Liquids Compensatory Strategies: Small Bites, Small Sips, Slow Rate, Multiple Swallows, Alternate bites/solids and sips/liquids and Sitting upright Recommend Repeat Modified Barium Swallow: TBD (Repeat MBSS if patient reports worsening difficulty swallowing or if increased s/s of aspiration consuming food/drink or managing our secretions.) Need for Skilled Speech Therapy Services: Yes Comment: -Train the patient in use of strategies to decrease risk for aspiration. -Ongoing assessment of diet tolerance of recommended textures. -Train the patient in oropharyngeal exercise program to improve airway closure, tongue base retraction, and pharyngeal motility (Maye, Effortful, Glenna, CTAR). Education Completed: 1. Described result of evaluation., 2. Pt understands evaluation & agrees with goals and treatment plan. and 7. Pt requires further education on strategies & risks. Status Active ST Patient: Active
== END | disposition home or self-care (01) ==
LOC: RAD 12:46
PROVIDERS: PCP Family Medicine; Referring Provider Family Medicine; Visit Provider Family Medicine
DX: R13.10 Dysphagia, unspecified (principal)
CPT/HCPCS: 74230; 92611

== ENCOUNTER 2023-08-29 13:00 | Outpatient (RCR) | payer MEDICARE, OTHER, SELFPAY ==
--- NOTE | 2023-07-17 13:21 | HP.PTEVAL_ITS ---
Patient's Visit Information Visit Information Visit Information: ROMULO GREEN is a 67 year old M referred to Physical Therapy by Dr. Marco A Restrepo MD with a diagnosis of PD. Date of Evaluation: 07/17/23 Physical Therapist: SELMA Sheehan Visit Plan Frequency: 2x /Week Duration: 4 Weeks Plan: 2X/ week for 4 weeks for testing on Balance machine, Dual tasking, gait mechanics, functional balance (walking BW, head turns) with HEP HEP: walking with good heel to toe, upright posture, and head turns Subjective Subjective: Pt said that neurologist wanted him to do PT for PD. Pt was recently dx with PD. He has been shuffling the last year or two. Pt has no fallen and he is really careful. When he stands up and turns he feels top heavy. He reports no weakness. He has no freezing movements. He can tell the tremors are now different. 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 He exercises and walks everyday and does strength training (free weights, push up and sits ups (45 min) 2-3X/ week. He has read up some on PD. He is on PD meds and just switched him to [place] but it will be coming to his house soon. He feels he is shuffling with gait. Objective Objective: Gait: walks with decrease heel to toe, decreased arm swing, decrease trunk rotation, and no head turn FGA: Standing opp arm and leg: X 10 without messing up LE MMT: R hip flex 13.8 and L 13.8 R knee ext 29.4 and L 25.2 R knee flex 18.7 and L 17.6 R hip abd 17.6 and L 17.1 Bridging: full ROM (possible hip flexor tightness) Pt is able to Roll side to side with ease Pt is able to heel and toe raise with slight LOB Sit to stand: able to sit to stand without using his arms Balance/Special Test Scores Functional Gait Assessment Score: 21 % Disability: 30.0000 Lower Extremity Functional Score: 62 Goals Goal 1:: I HEP Goal Time Frame: 4-6 Weeks Goal 2:: Test on the balance machine Goal Time Frame: 4-6 Weeks Goal 3:: Increase balance (score was 21 on FGA) Goal Time Frame: 4-6 Weeks Goal 4:: Work on normal gait pattern with increase stride, head turns and heel to toe gait pattern Goal Time Frame: 4-6 Weeks Rehabilitation Potential Rehabilitation Potential: Good Anticipated Interventions Patient/Client Instruction: Educate patient on: Condition and Plan of Care For the Purpose of:: To improve muscle performance and motor function, To improve ability to perform ADL's, To increase tolerance to activity/condition/position, To improve performance and independence with ADL's, To decrease level of supervision to perform tasks, To improve ability of physical actions for home/community/work/leisure, To improve gait and locomotor functions, To increase flexibility/ROM, To improve balance and To improve safety with gait Therapeutic Exercise to Include: Strength training, Endurance training, Balance training, Postural training, Flexibilty training, Gait and locomotor training and Neuromotor development For the Purpose of:: To improve nutrient delivery to tissue, To improve muscle performance and motor function, To improve ability to perform ADL's, To increase tolerance to activity/condition/position, To improve performance and inde pendence with ADL's, To decrease level of supervision to perform tasks, To improve ability of physical actions for home/community/work/leisure, To improve gait and locomotor functions, To improve health of tissue, To decrease soft tissue restriction, To increase flexibility/ROM, To improve endurance, To improve balance and To improve safety with gait Functional Training to Include: Gait training For the Purpose of:: To improve ability to perform ADL's and To improve safety with gait Text: Thank you for the opportunity to evaluate your patient. For Medicare and Medicare HMO plans, please review the plan of care and approve it. It will need to be FAXED BACK to us at [phone] for Medicare purposes. For Medicare only, by signing this I certify the plan of care. Please let me know if there are questions or concerns regarding this plan of care. Physician Signature: Date:
--- NOTE | 2023-07-31 09:46 | HP.PTCOM ---
PT Communication Note 07/31/[address] Marco A Restrepo MD , Thank you for the referral of Clyde Aragon. He was tested on our [employer] Balance Machine today and below are his results. He scored slightly abnormal with the use of his vestibular system to help him maintain his balance but only very slightly abnormal. He score within age related norms for the other sensory systems, visual and proprioception. He had a normal Motor Control Test. His Limits of Stability Test was normal except for a slight decreased ability to weight shift FW. We will continue to work on the above deficits but overall he tested very well. Sincerely, Aisha Landon, SELMA Contact Information
--- NOTE | 2023-08-03 15:14 | ST ---
[facility] Speech Pathology [address] [place] [address] Modified Barium Swallow Study MR#: [id number] Acct: [id number] Name: ROMULO GREEN Rep #: [id number] : 1955 67 years old From: Christina Villa M.A., [facility]AR[facility]AMIN[facility] Modified Barium Swallow Patient Information Study Date: 07/06/23 Study Time: 13:00 Direct Billable Minutes: 79 Total Minutes procedure & reportin Diagnosis: Dysphagia R13.10 Referring Physician: Tyler Kim Reason for Referral: Objectively assess swallow function, assess risk for aspiration, and determine recommendations for least restrictive diet textures and compensatory strategies to improve safety of swallow. Medical History: PMH: Parkinson's disease (diagnosed ~1 week ago, symptoms onset ~1.5 years ago), Bradycardia, Afib. Patient reports sensation of foods catching in his throat daily, which require another bite or liquid wash to clear. Additionally, at times his own saliva feels like it goes down the wrong way. Given his recent diagnosis of Parkinson's and sensation of pharyngeal retention, his PCP referred him for MBSS. His neurologist is Dr. Restrepo in [place]. He would like the MBSS faxed to Dr. Restrepo. Current Diet Ordered: Regular textures / Thin liquids Dentition: WNL and Natural Teeth Mental Status: WNL Respiratory Status: Oxygenating on Room Air Penetration-Aspiration Scale Penetration-Aspiration Scale: OBJECTIVE ASSESSMENT OF SWALLOW FUNCTION (QUANTITATIVE ? PER TRIAL): PENETRATION / ASPIRATION SCALE ([place]): 1 = does not enter airway 2 = enters airway/above vocal folds/ejected 3 = enters airway/above vocal folds/not ejected 4 = enters airway/contacts vocal folds/ejected 5 = enters airway/contacts vocal folds/not ejected 6 = enters airway/below vocal folds/ejected 7 = enters airway/below vocal folds/not ejected despite effort 8 = enters airway/below vocal folds/no effort VIDEOFLOROSCOPIC SCALE SCORE ([place]): Grade I = aspiration of material that has penetrated into the laryngeal vestibule, intact cough reflex Grade II = aspiration < 10 % of the bolus, intact cough reflex Grade III = aspiration of < 10 % of the bolus, reduced cough reflex or aspiration of > 10 % of the bolus, intact cough reflex Grade IV = aspiration of > 10 % of the bolus, reduced cough reflex Penetration-Aspiration Scale Score Thin Liquid via teaspoon: Result: 1= does not enter airway Thin Liquid via teaspoon Trial 2: Result: 1= does not enter airway Thin Liquid via large single sip: cup: Result: 1= does not enter airway [place] Thick Liquid via large single sip: cup: Result: 1= does not enter airway Pudding via teaspoon: Result: 1= does not enter airway Comment: Esophageal screen - Complete clearance. 06/26 Cookie: Result: 1= does not enter airway Thin Liquid via sequential sips:straw: Result: 2= enter airway/above vocal folds/ejected Oral Phase Labial Seal: No Labial Escape Tongue Control During Bolus Hold: Cohesive bolus between tongue to palatal seal Bolus Preparation/Mastication: Timely and efficient chewing and mashing Bolus Transport/Lingual Motion: Brisk tongue motion Oral Residue: Trace residue lining oral structures Pharyngeal Phase Initiation of Pharyngeal Swallow: Bolus head at posterior laryngeal surgace of epiglottis Soft Palate Elevation: No bolus between soft palate and pharyngeal wall Laryngeal Elevation: Comp. Superior move thyroid cart w/comp. apprx arytenoid cart-epig pet (laryngeal penetration fully ejects after completion of sequential thin) Anterior Hyoid Excursion: Partial anterior movement Epiglottic Movement: Partial inversion Laryngeal Vestibule Closure at Height of Swallow: Incomplete; narrow column of air/contrast in laryngeal vestibule Pharyngeal Stripping Wave: Present - diminished Pharyngoesophageal Segment Opening: Parital distension and partial duration; parital obstruction of flow Tongue Base Retraction: Wide column of contrast between tongue base & post. pharyngeal wall (sequential thin) Pharyngeal Residue: Collection of residue within or on pharyngeal structures Esophageal Phase Esophageal Clearance: Complete clearance Diagnosis/Impression Diagnosis: Mild pharyngeal dysphagia R13.13 Impression: The oral phase is grossly WNL. The pharyngeal phase is primarily marked by... -Mildly decreased airway closure during the swallow due to decreased anterior hyoid excursion, inconsistent epiglottic inversion, and mildly decreased laryngeal elevation. -Mildly-moderately decreased tongue base retraction, mildly decreased UES opening/duration, and mildly decreased pharyngeal stripping wave with resulting mild-moderate pharyngeal residues after the swallow. Pharyngeal residue greatly increased with sequential sips of thin liquids. Multiple swallows, which he completed independently as needed, cleared a majority of pharyngeal residues. -Trace laryngeal penetration of sequential sips of thin liquids that fully ejected during the swallow. Recommendations Diet: Regular Textures and Thin Liquids Compensatory Strategies: Small Bites, Small Sips, Slow Rate, Multiple Swallows, Alternate bites/solids and sips/liquids and Sitting upright Recommend Repeat Modified Barium Swallow: TBD (Repeat MBSS if patient reports worsening difficulty swallowing or if increased s/s of aspiration consuming food/drink or managing our secretions.) Need for Skilled Speech Therapy Services: Yes Comment: -Train the patient in use of strategies to decrease risk for aspiration. -Ongoing assessment of diet tolerance of recommended textures. -Train the patient in oropharyngeal exercise program to improve airway closure, tongue base retraction, and pharyngeal motility (Maye, Effortful, Glenna, CTAR). Education Completed: 1. Described result of evaluation., 2. Pt understands evaluation & agrees with goals and treatment plan. and 7. Pt requires further education on strategies & risks. Status Active ST Patient: Active 07/06/23 1835 <Electronically signed by Christina Villa M.A., CCC-HEARING EXAMINER>
--- NOTE | 2023-08-08 16:26 | HP.SP.EV_ITS ---
Visit History Visit Info Date of Eval: 08/03/23 Visit: 1 Senior Design Engineering Specialist: SHASTA Sadler Attending Doctor: Referring Doctor: Reason for Referral: PD;RX HERE Previous speech therapy: No Results: Previous MBSS on 07/06/23. See report attached below. Other Relevant Medical History/Diagnoses/Surgery: ROMULO GREEN is a 67 year old male who presents to [facility] Speech Therapy for evaluation of swallowing and voice skills following a recent dx of Parkinson's Disease. Zach reports he has been shuffling for the past 1-2 years but has not yet fallen. He states that he has been noticing some changes with his swallowing, therefore participated in an MBSS on 07/06/23. He states he has always been more soft spoken, but his and others have recently been asking him to either repeat himself or speak up more recently. 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 He enjoys golf and going on walks. He states he tries to go on a walk every day. Medications related to this diagnosis: Diltiazem, Carbidopa Levodopa (3x/day now), Xarelto Smoking Status: Never smoker Diagnosis Diagnosis: Parkinson's Disease, Mild oropharyngeal dysphagia Pain Is pain an issue with your current prescribed condition?: No Personal Preferred language: Belgian Patient Allergies Allergies Allergies: Allergies No Known Allergies Allergy (Verified 04/17/23 15:10) Modified Barium Results Hx If Applicable Enter into a NOTE MBS Results (from prior exam): 08/03/23 15:14 Speech Therapy by Lauren Arguelles [facility] Speech Pathology [address] [place] [address] Modified Barium Swallow Study MR#: [id number] Acct: [id number] Name: ROMULO GREEN Rep #: [id number] : 1955 67 years old From: Christina Villa M.A. [facility]-SUPERVISOR LEAD REFINERY Modified Barium Swallow Patient Information Study Date: 07/06/23 Study Time: 13:00 Direct Billable Minutes: 79 Total Minutes procedure & reportin Diagnosis: Dysphagia R13.10 Referring Physician: Tyler Kim Reason for Referral: Objectively assess swallow function, assess risk for aspiration, and determine recommendations for least restrictive diet textures and compensatory strategies to improve safety of swallow. Medical History: PMH: Parkinson's disease (diagnosed ~1 week ago, symptoms onset ~1.5 years ago), Bradycardia, Afib. Patient reports sensation of foods catching in his throat daily, which require another bite or liquid wash to clear. Additionally, at times his own saliva feels like it goes down the wrong way. Given his recent diagnosis of Parkinson's and sensation of pharyngeal retention, his PCP referred him for MBSS. His neurologist is Dr. Restrepo in [place]. He would like the MBSS faxed to Dr. Restrepo. Current Diet Ordered: Regular textures / Thin liquids Dentition: WNL and Natural Teeth Mental Status: WNL Respiratory Status: Oxygenating on Room Air Penetration-Aspiration Scale Penetration-Aspiration Scale: OBJECTIVE ASSESSMENT OF SWALLOW FUNCTION (QUANTITATIVE ? PER TRIAL): PENETRATION / ASPIRATION SCALE (OLMSTEAD): 1 = does not enter airway 2 = enters airway/above vocal folds/ejected 3 = enters airway/above vocal folds/not ejected 4 = enters airway/contacts vocal folds/ejected 5 = enters airway/contacts vocal folds/not ejected 6 = enters airway/below vocal folds/ejected 7 = enters airway/below vocal folds/not ejected despite effort 8 = enters airway/below vocal folds/no effort VIDEOFLOROSCOPIC SCALE SCORE (OLMSTEAD): Grade I = aspiration of material that has penetrated into the laryngeal vestibule, intact cough reflex Grade II = aspiration < 10 % of the bolus, intact cough reflex Grade III = aspiration of < 10 % of the bolus, reduced cough reflex or aspiration of > 10 % of the bolus, intact cough reflex Grade IV = aspiration of > 10 % of the bolus, reduced cough reflex Penetration-Aspiration Scale Score Thin Liquid via teaspoon: Result: 1= does not enter airway Thin Liquid via teaspoon Trial 2: Result: 1= does not enter airway Thin Liquid via large single sip: cup: Result: 1= does not enter airway [place] Thick Liquid via large single sip: cup: Result: 1= does not enter airway Pudding via teaspoon: Result: 1= does not enter airway Comment: Esophageal screen - Complete clearance. / Cookie: Result: 1= does not enter airway Thin Liquid via sequential sips:straw: Result: 2= enter airway/above vocal folds/ejected Oral Phase Labial Seal: No Labial Escape Tongue Control During Bolus Hold: Cohesive bolus between tongue to palatal seal Bolus Preparation/Mastication: Timely and efficient chewing and mashing Bolus Transport/Lingual Motion: Brisk tongue motion Oral Residue: Trace residue lining oral structures Pharyngeal Phase Initiation of Pharyngeal Swallow: Bolus head at posterior laryngeal surgace of epiglottis Soft Palate Elevation: No bolus between soft palate and pharyngeal wall Laryngeal Elevation: Comp. Superior move thyroid cart w/comp. apprx arytenoid cart-epig pet (laryngeal penetration fully ejects after completion of sequential thin) Anterior Hyoid Excursion: Partial anterior movement Epiglottic Movement: Partial inversion Laryngeal Vestibule Closure at Height of Swallow: Incomplete; narrow column of air/contrast in laryngeal vestibule Pharyngeal Stripping Wave: Present - diminished Pharyngoesophageal Segment Opening: Parital distension and partial duration; parital obstruction of flow Tongue Base Retraction: Wide column of contrast between tongue base & post. pharyngeal wall (sequential thin) Pharyngeal Residue: Collection of residue within or on pharyngeal structures Esophageal Phase Esophageal Clearance: Complete clearance Diagnosis/Impression Diagnosis: Mild pharyngeal dysphagia R13.13 Impression: The oral phase is grossly WNL. The pharyngeal phase is primarily marked by... -Mildly decreased airway closure during the swallow due to decreased anterior hyoid excursion, inconsistent epiglottic inversion, and mildly decreased laryngeal elevation. -Mildly-moderately decreased tongue base retraction, mildly decreased UES opening/duration, and mildly decreased pharyngeal stripping wave with resulting mild-moderate pharyngeal residues after the swallow. Pharyngeal residue greatly increased with sequential sips of thin liquids. Multiple swallows, which he completed independently as needed, cleared a majority of pharyngeal residues. -Trace laryngeal penetration of sequential sips of thin liquids that fully ejected during the swallow. Recommendations Diet: Regular Textures and Thin Liquids Compensatory Strategies: Small Bites, Small Sips, Slow Rate, Multiple Swallows, Alternate bites/solids and sips/liquids and Sitting upright Recommend Repeat Modified Barium Swallow: TBD (Repeat MBSS if patient reports worsening difficulty swallowing or if increased s/s of aspiration consuming food/drink or managing our secretions.) Need for Skilled Speech Therapy Services: Yes Comment: -Train the patient in use of strategies to decrease risk for aspiration. -Ongoing assessment of diet tolerance of recommended textures. -Train the patient in oropharyngeal exercise program to improve airway closure, tongue base retraction, and pharyngeal motility (Maye, Effortful, Glenna, CTAR). Education Completed: 1. Described result of evaluation., 2. Pt understands evaluation & agrees with goals and treatment plan. and 7. Pt requires further education on strategies & risks. Status Active ST Patient: Active 07/06/23 1616 <Electronically signed by Christina Villa M.A., CCC-SUPERVISOR LEAD REFINERY> Initialized on 08/03/23 15:14 - END OF NOTE Objective Voice Date of Diagnosis Previous Speech Therapy (If yes, describe): No Medications Familiar with on/off effect: Yes (Pt stating he has read about it, but has not experienced yet) Implantation Deep brain implantation (If yes, answer next question): No Objective data Objective Data: Objective data: Sound pressure level (SPL acoustic correlation of vocal loudness) was measured with a sound level meter at a distance of 40 cm from the patient's mouth. Average conversational loudness is 70-80 dB and sustained phonation duration is 15 to 20 seconds for a typical adult. Sustained Phonatin duration (seconds): 26 Is the individual stimulable to increase vocal intensity: Yes Acoustic Analysis Acoustic Analysis: These results represent reading and conversational decibel levels that may significantly reduce speech intelligibility and communicative effectiveness. Amplitude Intensity Sustained (Average) in dB SPL: 76 dB Amplitude Intensity Paragragh (Average) in dB SPL: 59.7 dB during a paragraph reading task Amplitude Intensity Conversational (Average) in dB SPL: 59 dB during a casual conversation with speech therapist Observational Assessment Pitch Range in octaves: Pt functional in raising/lowering pitch 2 octaves Voice Handicap Index (VHI) VHI VHI Administered: Yes VHI: Patient completed the Voice Handicap Index, which is a 30 item, self administered questionnaire that asks an individual to describe their voice and the effects of their voice on their life. Three subscales cover the areas of functional, emotional, and physical aspects of the voice disorders. Points from the questions can be combined to assign a total score, or they can be combined by subscale. Results for the VHI are as follows: Date: 08/03/23 VHI Test Functional: Total Score = 15 (0 - never, 1 - almost never, 2 - sometimes, 3 - almost always, 4 - always) My voice makes it difficult for people to hear me = 3 People have difficulty understanding me in a noisy room = 3 My family has difficulty hearing me when I call them throughout the house = 3 I use the phone less often than I would like to = 0 I tend to avoid groups of people because of my voice = 0 I speak with friends, neighbors, or relatives less often because of my voice = 0 People ask me to repeat myself when speaking [id number] = 3 My voice difficulties restrict my personal and social life = 2 I feel left out of conversations because of my voice = 1 My voice problem causes me to lose income =0 Physical: Total Score = 15 (0 - never, 1 - almost never, 2 - sometimes, 3 - almost always, 4 - always) I run out of air when I talk =1 The sound of my voice varies throughout the day = 3 People ask, ?what?s wrong with your voice?? = 1 My voice sounds creaky and dry = 2 I feel as though I have to strain to produce voice = 0 The clarity of my voice is unpredictable = 2 I try to change my voice to sound different = 1 I use a great deal of effort = 2 My voice is worse in the evening = 3 My voice ?gives out? on me in the middle of speaking = 0 Emotional: Total Score = 13 (0 - never, 1 - almost never, 2 - sometimes, 3 - almost always, 4 - always) I am tense when talking to others because of my voice = 0 People seem irritated with my voice = 1 I find other people don?t understand my voice problem = 1 My voice problem upsets me = 2 I am less outgoing because of my voice problem = 1 My voice makes me feel handicapped = 1 I feel annoyed when people ask me to repeat = 2 I feel embarrassed when people ask me to repeat = 2 My voice makes me feel incompetent = 1 I am ashamed of my voice problem = 2 Total Severity Rating: Moderate (31-60) Comments Other: -: Pt stating that he has looked into the [facility] [facility] [employer] Swallowing Performance Scale Swallowing Performance Scale Swallowing Performance Scale Result: 3 Mild Reference: Neuro-QoL instrument Radiation Oncology Patient Plan Plan Plan: Will rx Pt for skilled outpatient tx to address deficits in mild oropharyngeal dysphagia as well as voice intervention. Pt would benefit from training and education re: diet tolerance checks, swallowing exercises to aid in oropharyngeal strengthening, and LSVT Loud program. Without skilled intervention, Pt is at risk for consuming a restrictive diet putting him at risk for aspiration pneumonia and atrophy of laryngeal musculature. Recommendations Treatment Warranted: Yes Treatment Warranted: Dysphagia and Voice Progress Prognosis: Good Frequency Frequency: 2x /Week Duration: 4 Weeks Goals that are Established Determination:: Goals will be added/modified as deemed necessary and appropriate. Therapy will be discontinued when results of re-evaluation indicate therapy is no longer needed or lack of progress has been documented. Goal #1-5 Goal #1: Zach will increase vocal loudness to reach a target sound pressure level of 85 dB SUPERVISOR LEAD REFINERY with 1 cue during sustained phonation, which will help increase vocal respiratory support for functional communication. Goal #2: Zach will increase vocal loudness to reach a target sound pressure level of 75 dB SUPERVISOR LEAD REFINERY with 1 cue during reading at the word and sentence level, which will help increase vocal respiratory support for functional communication. Goal #3: Zach will increase vocal loudness to reach a target sound pressure level of 70 dB SUPERVISOR LEAD REFINERY with 1 cue during conversation for functional communication. Goal #4: Zach will utilize swallowing strategies (i.e., Small Bites, Small Sips, Slow Rate, Multiple Swallows, Alternate bites/solids and sips/liquids and Sitting upright) and tolerate least restrictive diet with no overt s/s of aspiration/penetration to aid in safe consumption of solid/liquids independently. Goal #5: Zach will complete oropharyngeal exercises (i.e., Maye, Effortful, Glenna, CTAR) for 10 reps, 3x/day independently to improve tongue base retraction and pharyngeal motility. Education Patient has Indicated that the Following Identified Educational Needs: None The Patient has indicated that they have no educational or learning abilities that may effect their care.: Yes Patient Instruction Patient Education: Diagnosis, Treatment Plan and Goals Person Taught: Patient Teaching Method: Discussion and Demonstration Response to teaching: Return demonstration and Verbalize understanding
--- NOTE | 2023-08-14 08:37 | HP.PTDCSUM ---
Discharge Summary D/C summary: It has been my pleasure to treat ROMULO GREEN referred by Dr. Marco A Restrepo MD, with the diagnosis of PD for a total of 8 visit(s). Discharge Date: 08/14/23 Please see the following information for a summary of their discharge status. Subjective Subjective: He feels that his sx are mild and he does not get after like he used to. He just is slowing down. Overall Improvement % Improvement: 100 Objective Objective/Function: FGA 24 Goals Goal 1:: I HEP Goal Progress: Goal Met Goal 2:: Test on the balance machine Goal Progress: Goal Met Goal 3:: Increase balance (score was 21 on FGA) Goal 4:: Work on normal gait pattern with increase stride, head turns and heel to toe gait pattern Goal Progress: Progressing Plan Plan: DC PT to class D/C Information Discharge Comments: DC PT to HEP/PD class/gym membership d/c sentence: If there are questions or concerns regarding this patient's physical therapy, please feel free to call me at [phone]. Thank you for the referral of this patient. Sincerely, Aisha Landon, MPT Balance/Gait/Functional tests Balance/Special Test Scores Functional Gait Assessment Score: 24 % Disability: 20.0000 Lower Extremity Functional Score: 68 Improvement % Improvement: 100
--- NOTE | 2023-12-09 14:21 | HP.SP.DC ---
ST Discharge Summary Discharged: Discharge: Clyde Aragon is discharged from [facility] as of 08/29/23. He was evaluated on 08/03/23 for dysphonia due to Parkinson?s disease. He was seen for 6 visits and progressed very well. His goals focused on increasing volume as well as dysphagia exercises. He was independent with completion of swallow exercises. He met volume goals in structured tasks but his goal in conversation was 70dB. He did not meet this goal (he was at 64 dB) but patient and therapist were in agreement with discharge as he verbalized he is naturally quieter by nature. He also can self-monitor with the use of his phone with a sound pressure level trip. He currently is taking regular foods and thin liquids. Thank you for allowing me to participate in the care of this patient.
== END 2023-08-29 19:00 | disposition home or self-care (01) ==
LOC: SP 13:00
PROVIDERS: PCP Family Medicine; Referring Provider Psychiatry & Neurology Neurology; Visit Provider Psychiatry & Neurology Neurology
DX: G20.A1 Parkinson's disease without dyskinesia, without mention of fluctuations (principal); R49.0 Dysphonia; R13.10 Dysphagia, unspecified
CPT/HCPCS: 92507; 92524; 92526; 92610; 97110; 97161; 97530; 97750

== ENCOUNTER → 2023-09-04 | Outpatient (CLI) | payer MEDICARE, OTHER, SELFPAY ==
--- NOTE | 2023-09-04 | IMM_PTH ---
PATHOLOGY RESULTS PATIENT: ROMULO GREEN LOC: [facility] U#:[id number] AGE/SX: 68/M ROOM: RE09/04/[address]: Dr. Toni Kim MD : 1955 BED: DIS: 09/04/2023 SPEC #: [id number] RECD: 09/06/23 12:58 STATUS: LETY REQ #: [id number] GEOVANNI: 09/04/23 00:[address]: Toni Kim DEPT: IMMUNOHISTOCHEMISTRY RECD BY: Joann Howard ENTERED: 09/06/23 13:02 SP TYPE: IMMUNO Tissues: Inguinal region, NOS Procedures: CK5-6 (add) KI-67 (add) P53 (add) Vimentin (add) Pankeratin (initial) MELAN-A (add) P40 (add) CD68 (ADD) S-100 (add) PHYSICIAN & INSTITUTION [place] [id number] SPECIMEN INFORMATION: Tissue Source: B. Left groin melanoma Clinical Info: Left groin melanoma Specimen Number: [id number] CPT code: 11525,42533u3 METHODOLOGY: Deparaffinized sections of prefer/formalin-fixed tissue or PAP/DQ stained slides are incubated with monoclonal/polyclonal antibodies/oligonucleotide probes. Localization is made via biotin free immunoperoxidase method. Appropriate controls are performed and reacted as expected. Results on target cell population are indicated in the following table: RESULTS: ANTIBODY / CLONE RESULT Block BAE1-3 (AE1/AE3/PCK26) positive Vimentin (V9) positive CD68 (KP-1) positive Melan A (A103) negative S-100 (4C4.9) negative CK5-6 (D5 & 1684) positive P40 (BC28) positive Ki-67 (30-9) positive, low to moderate P53 (DO-7) negative, null pattern These tests were developed and their performance characteristics determined by [facility]. They may not have been cleared or approved by the U.S. Food and Drug Administration. The FDA has determined that such clearance or approval is not necessary. The above immunohistochemical/dualISH markers are ordered and reviewed by the Pathologist. INTERPRETATION: B. Left groin melanoma, shave biopsy; Actinic change with mild atypia. No evidence of melanoma. AM/mr 09/07/2023
--- NOTE | 2023-09-04 15:30 | LES_PTH ---
PATHOLOGY RESULTS PATIENT: ROMULO GREEN LOC: [facility] U#:[id number] AGE/SX: 68/M ROOM: RE09/04/[address]: Dr. Toni Kim MD : 1955 BED: DIS: 09/04/2023 SPEC #: [id number] RECD: 09/04/23 19:15 STATUS: LETY BORA #: [id number] GEOVANNI: 09/04/23 15:[address]: Toni Kim DEPT: SURGICAL PATHOLOGY RECD BY: Radha Palmer ENTERED: 09/05/23 09:19 SP TYPE: Lesion Tissues: Skin of face, NOS Skin of inguinal region Procedures: Surgery Specimen Level IV HEADER OPERATION: Shave biopsy PRE-OP DIAGNOSIS: Right mandaen SCC, Left groin melanoma TISSUE SUBMITTED: A. Right mandaen SCC, B. Left groin melanoma MICROSCOPIC DIAGNOSIS A. Skin lesion of right mandaen, shave biopsy; Basal cell carcinoma. See comment. B. Skin lesion of left groin region, shave biopsy; Consistent with seborrheic keratosis with focal actinic change. See comment. MARGRET/ 09/06/23 COMMENT A. The lesion extends to the deep margin of excision. Clinical correlation is suggested. B. Pigmented macrophages are present in the epidermis. There is no evidence of melanotic lesion. Immunohistochemistry ([id number]) supports the above diagnosis. Case has been reviewed in consultation with Dr. Trujillo who concurs with the above diagnosis. IDC:SJ MICROSCOPIC DESCRIPTION Slides are reviewed. GROSS DESCRIPTION A. Received in fixative is one container labeled with the patient's name and designated Right mandaen. The specimen consists of irregular piece of hearn-white skin measuring 0.8x0.6x0.2cm. A few hairs are noted are also noted on specimen. The skin surface shows brown hemorrhagic lesion measuring 0.5x0.5cm. The specimen is inked, serially sectioned and submitted entirely in one cassette. B. Received in fixative is one container labeled with the patient's name and designated Left groin. The specimen consists of a shave biopsy of hearn-white skin measuring 0.7x0.5x0.1cm. The specimen is inked, serially sectioned and submitted entirely in one cassette. AUBREY/ 09/05/23 TC:0 CPT: 88017g0
== END | disposition home or self-care (01) ==
PROVIDERS: PCP Family Medicine; Referring Provider Family Medicine; Visit Provider Family Medicine
DX: C76.3 Malignant neoplasm of pelvis (principal)
CPT/HCPCS: 88305; 88341; 88342

== ENCOUNTER → 2025-03-03 | Outpatient (CLI) | payer MEDICARE, OTHER, SELFPAY ==
[2025-03-03 13:39] LABS: Anion Gap 8 (5-15); BUN 16 mg/dL (4-19); BUN/Creat Ratio 18.1 RATIO (10-20); Calcium,Total 9.4 mg/dL (7.6-11.0); Carbon Dioxide 28.8 mmol/L (21.0-32.0); Chloride 103 mmol/L (98-108); Cholesterol 125 mg/dL (<=200); Glucose 79 mg/dL (70-99); Low Density Lipoprotein Calc. 60 mg/dL; Potassium 4.4 mmol/L (3.3-5.1); Triglycerides 91 mg/dL; Very Low Density Lipoprotein 18 mg/dL (5-40); cholesterol:hdl ratio screen 2.64
[2025-03-03 17:54] LABS: PSA,Total - Annual Screen 2.18 ng/mL (0.02-4.00)
== END | disposition home or self-care (01) ==
LOC: MFPLAB 09:46
PROVIDERS: PCP Family Medicine; Referring Provider Family Medicine; Visit Provider Family Medicine
DX: Z13.220 Encounter for screening for lipoid disorders (principal); I10 Essential (primary) hypertension; Z12.5 Encounter for screening for malignant neoplasm of prostate
CPT/HCPCS: 36415; 80048; 80061; 84153; G0103

== ENCOUNTER → 2025-06-11 | Outpatient (CLI) | payer MEDICARE, OTHER, SELFPAY ==
--- NOTE | 2025-06-11 13:53 | ECHOD_ITS ---
Reason For Study Reason For Study: MURMUR Procedure This was a 2D Doppler, Color Flow transthoracic echocardiogram. Exam performed in department. Left Ventricle Normal LV size. The left ventricular ejection fraction is 65 %. No regional wall motion abnormalities noted. Right Ventricle Normal RV size. Normal systolic function. Atria The left atrium is mildly enlarged. Normal right atrium. Mitral Valve Normal mitral valve. Mild (1+) eccentric mitral valve insufficiency. Tricuspid Valve Normal tricuspid valve. Mild (1+) tricuspid valve insufficiency. Aortic Valve Normal aortic valve. Trisinus/trileaflet aortic valve. Mild (1+) eccentric aortic valve insufficiency. Pulmonic Valve Normal pulmonic valve. Mild (1+) pulmonic valve insufficiency. Great Vessels Normal aortic root. The pulmonary artery is normal size. Inferior vena cava collapse with respiration. Pericardium/Pleural No pericardial effusion. MMode/2D Measurements & Calculations LVIDd: 6.1 cm IVSd: 1.2 cm asc Aorta Diam: 3.6 cm LVIDs: 3.7 cm LVPWd: 0.78 cm RVDd: 3.7 cm FS: 39.9 % LAV(MOD-bp): 81.1 ml LVAd ap4: 48.7 cm2 LVAd ap2: 47.5 cm2 LAV(MOD-bp) Indexed: 39.1 ml/m2 LVLd ap4: 10.2 cm LVLd ap2: 10.0 cm LAV(MOD-sp2): 78.9 ml EDV(MOD-sp4): 184.1 ml EDV(MOD-sp2): 189.0 ml LAV(MOD-sp4): 79.8 ml EDV(sp4-el): 197.6 ml EDV(sp2-el): 191.8 ml LVAs ap4: 24.0 cm2 LVAs ap2: 23.3 cm2 LVLs ap4: 8.0 cm LVLs ap2: 8.3 cm ESV(MOD-sp4): 59.8 ml ESV(MOD-sp2): 56.1 ml ESV(sp4-el): 61.0 ml ESV(sp2-el): 55.5 ml EF(MOD-sp4): 67.5 % EF(MOD-sp2): 70.3 % EF(sp4-el): 69.1 % SV(MOD-sp4): 124.3 ml SV(MOD-sp2): 132.9 ml EDV(MOD-bp): 189.5 ml SI(MOD-sp4): 59.9 ml/m2 SI(MOD-sp2): 64.1 ml/m2 ESV(MOD-bp): 59.0 ml EF(MOD-bp): 68.9 % SV(sp4-el): 136.5 ml LA A4 area: 23.6 cm2 RA A4 area: 18.6 cm2 TAPSE: 2.9 cm Time Measurements MV dec time: 0.32 sec Doppler Measurements & Calculations MV E max hermelindo: 64.5 cm/sec Lat Peak E' Hermelindo: 11.0 cm/sec Med Peak E' Hermelindo: 9.0 cm/sec MV A max hermelindo: 46.6 cm/sec E/E' lat: 5.8 E/E' med: 7.1 MV E/A: 1.4 MV dec slope: 201.7 cm/sec2 Ao V2 max: 206.2 cm/sec AI max hermelindo: 413.0 cm/sec Ao max P.0 mmHg AI max P.0 mmHg Ao V2 mean: 142.0 cm/sec AI dec slope: 201.3 cm/sec2 Ao mean P.9 mmHg AI P1/2t: 600.9 msec Ao V2 VTI: 47.6 cm AV (velocity ratio): 0.68 LV V1 max: 140.7 cm/sec PA V2 max: 88.8 cm/sec TR max hermelindo: 219.9 cm/sec LV V1 max P.9 mmHg TR max P.3 mmHg LV V1 mean P.4 mmHg LV V1 mean: 98.4 cm/sec LV V1 VTI: 32.2 cm ECHO/Echo Complete Interpretation Summary The left ventricular ejection fraction is 65 %. Normal LV size. Mild (1+) eccentric aortic valve insufficiency. Mild (1+) eccentric mitral valve insufficiency. Ordering Physician: Dani Rouse Referring Physician: Toni Kim Performed By: Meng Crow RDCS
== END | disposition home or self-care (01) ==
LOC: CVS 13:52
PROVIDERS: PCP Family Medicine; Referring Provider Internal Medicine Cardiovascular Disease; Visit Provider Internal Medicine Cardiovascular Disease
DX: I35.1 Nonrheumatic aortic (valve) insufficiency (principal)
CPT/HCPCS: 93306